=== PATIENT | female | born 1945 | race Two or more races ===

== ENCOUNTER 2020-09-29 06:10 | Day surgery (SDC) | payer OTHER ==
[~2020-09-29 06:10] MED LIST: COZAAR100 MG PO; FOSAMAX70 MG PO; MOBIC7.5 MG PO
[2020-09-29] MEDS ORDERED: MACROBID 100 M100 MG PO (10:45)
== END 2020-09-29 14:30 | disposition home or self-care (01) ==
LOC: CIR.AMB 06:10 → SURH 10:30 → CIR.AMB 10:30 → EDSTATUS 10:30 → CIR.AMB 14:30
PROVIDERS: ATTEND Obstetrics & Gynecology Gynecology
DX: N81.11 Cystocele, midline (principal); N81.5 Vaginal enterocele; Z20.822 Contact with and (suspected) exposure to COVID-19